=== PATIENT | female | born 1965 | race Caucasian/White ===

== ENCOUNTER 2017-06-03 06:22 | Emergency (ER) | payer OTHER ==
[~2017-06-03] VITALS: Ht 157.5 cm; Wt 55.3 kg
[~2017-06-03 06:22] MED LIST: TYLENOL WITH C1 EACH PO
[2017-06-03 08:37] LABS: BASOPHIL (%) 0.3 % (0-1); EOSINOPHIL (%) 0.4 % (0-5); HEMATOCRIT 38.9 % (36.0-46.0); HEMOGLOBIN 13.2 G/DL (11.9-15.5); IMMATURE GRANULOCYTE (%) 0.1 % (0.0-0.7); LYMPHOCYTE (%) 22.7 % (15-42); LYMPHOCYTE COUNT 1.6 K/uL (1.0-2.8); MCH 31.5 PG (29.0-34.0); MCHC 33.9 G/DL (30.0-36.0); MCV 92.8 FL (83-99); MONOCYTE (%) 7.3 % (3-12); MONOCYTE COUNT 0.5 K/uL (0-0.8); NEUTROPHIL (%) 69.2 % (45-76); NEUTROPHIL COUNT 4.7 K/uL (1.8-6.4); PLATELET COUNT 218 K/uL (156-360); RBC DIS.WIDTH-CV 13.2 % (11.8-14.6); RBC DIS.WIDTH-SD 44.9 % (39-53); RED BLOOD COUNT 4.19 M/uL (3.80-5.20); WHITE BLOOD COUNT 6.8 K/uL (4.1-10.2)
[2017-06-03 08:46] LABS: CHLORIDE 109 mEq/L (99-109); POTASSIUM 4.1 mEq/L (3.7-5.4); SODIUM 141 mEq/L (136-147)
[2017-06-03 08:47] LABS: MAGNESIUM 2.2 mg/dL (1.3-2.7)
[2017-06-03 08:48] LABS: GLUCOSE 95 mg/dL (70-99); PTT 27.1 SEC (25-37)
[2017-06-03 08:52] LABS: CREATININE 0.8 mg/dL (0.6-1.3); GFR ESTIMATE (CALCULATED) > 59 mL/min/
[2017-06-03 08:53] LABS: UREA NITROGEN (BUN) 16 mg/dL (9-23)
[2017-06-03 08:58] LABS: TROP-I INTERPRETATION NEGATIVE; TROPONIN-I < 0.01 ng/mL (0.0-0.30)
[2017-06-03] MEDS ORDERED: FLEXERIL10 MG PO (12:42)
[2017-06-03] MEDS ORDERED: ULTRAM50 MG PO (12:42)
[2017-06-03 13:04] VITALS: BP 149/95
== END 2017-06-03 13:05 | disposition home or self-care (01) ==
LOC: EME 06:22
PROVIDERS: Emergency Medicine
DX: M54.2 Cervicalgia (principal); E04.1 Nontoxic single thyroid nodule; Z91.040 Latex allergy status
CPT/HCPCS: 70490; 71045; 71275; 80048; 83735; 84484; 85025; 85610; 85730; 93005; 99281; 99285; J3010; J7030

== ENCOUNTER → 2018-01-08 | Outpatient (CLI) | payer OTHER ==
[~2018-01-08] VITALS: Ht 157.5 cm; Wt 56.2 kg
[~2018-01-08] MED LIST changes: +DAILY VALUE1 EACH PO; +FLEXERIL10 MG PO; +PROBIOTIC1 EAC1 PO; +ULTRAM50 MG PO
== END | disposition home or self-care (01) ==
LOC: AMB 13:15
PROC: 0DJD8ZZ Inspection of Lower Intestinal Tract, Via Natural or Artificial Opening Endoscopic (ICD-10-PCS; principal; 2018-01-08)
DX: Z12.11 Encounter for screening for malignant neoplasm of colon (principal); R73.03 Prediabetes; I87.8 Other specified disorders of veins; Z80.3 Family history of malignant neoplasm of breast; Z80.8 Family history of malignant neoplasm of other organs or systems; Z82.49 Family history of ischemic heart disease and other diseases of the circulatory system; Z83.49 Family history of other endocrine, nutritional and metabolic diseases